=== PATIENT | female | born 1995 | race Caucasian/White ===

== ENCOUNTER → 2019-09-16 17:38 | Outpatient (BNVA) | payer MEDICAID, SELFPAY | PROVIDERS: Family Provider Emergency Medicine; PCP Emergency Medicine; Visit Provider Nurse Practitioner Family | DX: Z34.90 Encounter for supervision of normal pregnancy, unspecified, unspecified trimester (principal); N92.6 Irregular menstruation, unspecified; K52.9 Noninfective gastroenteritis and colitis, unspecified | CPT/HCPCS: 81025 ==